=== PATIENT | female | born 1940 | race Caucasian/White ===

== ENCOUNTER 2022-09-18 08:26 | Outpatient (CLI) | payer OTHER ==
[2022-09-18 09:17] LABS: ALBUMIN 3.7 G/DL (3.4-5.0); ANION GAP 6 (8-16); BLOOD UREA NITROGEN 17 MG/DL (7-18); BUN/CREATININE RATIO 18.3 (6.6-38.0); CHLORIDE 108 MMOL/L (99-107); CREATININE 0.93 MG/DL (0.40-0.90); GLUCOSE 88 MG/DL (70-104); POTASSIUM 3.9 MMOL/L (3.5-5.1); SODIUM 141 MMOL/L (135-145); eGFR 58 ML/MIN
[2022-09-18] MEDS ORDERED: IODIXANOL 320 MG/ML INFUS..BTL 100ML IV ONE (09:34)
== END 2022-09-18 23:59 | disposition home or self-care (01) ==
LOC: RAD 08:26
PROVIDERS: ATTEND Internal Medicine Cardiovascular Disease
DX: I48.0 Paroxysmal atrial fibrillation (principal)
CPT/HCPCS: 36415; 75574; 80048; J3490; Q9967

== ENCOUNTER 2022-09-27 11:05 | Outpatient (CLI) | payer OTHER ==
[2022-09-27] MEDS ORDERED: IODIXANOL 320 MG/ML INFUS..BTL 100ML IV ONE (11:19)
== END 2022-09-27 23:59 | disposition home or self-care (01) ==
LOC: RAD 11:05
PROVIDERS: ATTEND Internal Medicine Cardiovascular Disease
DX: J43.9 Emphysema, unspecified (principal); R91.8 Other nonspecific abnormal finding of lung field; K76.0 Fatty (change of) liver, not elsewhere classified; I48.0 Paroxysmal atrial fibrillation; M47.814 Spondylosis without myelopathy or radiculopathy, thoracic region
CPT/HCPCS: 75572; J3490; Q9967

== ENCOUNTER 2022-12-06 09:05 | Outpatient (CLI) | payer OTHER ==
[2022-12-06 09:39] LABS: ALBUMIN 3.7 G/DL (3.4-5.0); ANION GAP 6 (8-16); BLOOD UREA NITROGEN 19 MG/DL (7-18); BUN/CREATININE RATIO 21.6 (6.6-38.0); CALCIUM 9.1 MG/DL (8.5-10.1); CHLORIDE 105 MMOL/L (99-107); CREATININE 0.88 MG/DL (0.40-0.90); GLUCOSE 84 MG/DL (70-104); SODIUM 140 MMOL/L (135-145); TOTAL CARBON DIOXIDE 28.8 MMOL/L (24-32); eGFR 62 ML/MIN
[2022-12-06] MEDS ORDERED: iohexol 350MG/ML 100ml bottle IV ONE (09:44)
== END 2022-12-06 23:59 | disposition home or self-care (01) ==
LOC: RAD 09:05
PROVIDERS: ATTEND Nurse Practitioner Adult Health
DX: J43.9 Emphysema, unspecified (principal); K76.0 Fatty (change of) liver, not elsewhere classified; I48.91 Unspecified atrial fibrillation; Z95.818 Presence of other cardiac implants and grafts
CPT/HCPCS: 36415; 75572; 80048; J3490; Q9967